=== PATIENT | male | born 1960 | race Two or more races ===

== ENCOUNTER 2019-07-13 18:35 | Inpatient (IN) | payer OTHER, MEDICAID ==
[~2019-07-13] VITALS: Ht 167.6 cm; Wt 61.7 kg
--- NOTE | 2019-07-13 19:00 | NUR ---
PATIENT IN ROOM RESTING ON GURNY A/OX3. PATIENT HAS BKA ON LLE WITH DRESSING CLEAN AND INTAKE. HAS REDNESS AND SWELLING ON RIGHT CALF AREA. DENIES PAIN AND SOB.
[2019-07-13] MEDS ORDERED: IV NORMAL SALINE 1000 ML BAG IV ONE (19:45)
[2019-07-13 20:07] LABS: *BILIRUBIN,URIN NEGATIVE (NEGATIVE); *BLOOD, URINE 3+ (NEGATIVE); *COLOR,URINE DARK YELLOW (YELLOW); *KETONES,URINE NEGATIVE (NEGATIVE); *UROBILINOGEN,URINE 0.2 E.U./dl (NORMAL); LEUKOCYTE ESTERASE ,URINE NEGATIVE (NEGATIVE); NITRITE, URINE NEGATIVE (NEGATIVE); PH,URINE 6.5 (5.0-8.0); UGLUCOSE NEGATIVE (NEGATIVE)
[2019-07-13 20:11] LABS: BASOPHILS # (AUTO) 0.1 K/uL (0.0-8.0); BASOPHILS % (AUTO) 0.5 % (0.0-2.0); EOSINOPHILS # (AUTO) 0.2 K/uL (0.0-0.7); EOSINOPHILS % (AUTO) 1.6 % (0.0-7.0); HEMATOCRIT 23.7 % (36.7-47.1); HEMOGLOBIN 8.2 g/dL (12.5-16.3); LYMPHOCYTES # (AUTO) 1.1 K/uL (20.0-40.0); LYMPHOCYTES % (AUTO) 10.9 % (20.5-51.5); MEAN CORPUSCULAR HGB CONC 35 g/dL (32.5-36.3); MEAN CORPUSCULAR VOLUME 92.5 fL (73.0-96.2); MONOCYTES # (AUTO) 0.7 K/uL (2.0-10.0); MONOCYTES % (AUTO) 7.4 % (0.0-11.0); NEUTROPHILS # (AUTO) 7.6 K/uL (1.8-8.9); NEUTROPHILS % (AUTO) 79.6 % (38.5-71.5); PLATELET COUNT (AUTO) 99 K/uL (152-348); RED BLOOD CELL COUNT(AUTO) 2.56 MIL/uL (4.06-5.63); WHITE BLOOD COUNT (AUTO) 9.6 K/uL (3.6-10.2)
[2019-07-13 20:16] LABS: CREATININE 1.5 mg/dL (0.6-1.3); POTASSIUM 3.1 mmol/L (3.5-5.1)
[2019-07-13 20:18] LABS: *CLARITY,URINE SLIGHTLY HAZY (CLEAR)
[2019-07-13 20:19] LABS: MUCUS,URINE MODERATE /LPF (0-FEW); RBC,URINE 50-80 /HPF (0-3); SQUAMOUS EPITHELIAL CELL,UR FEW /HPF (NONE SEEN); WBC,URINE 0-3 /HPF (0-3)
[2019-07-13 20:22] LABS: BILIRUBIN,DIRECT 0.6 mg/dL (0.0-0.2); BILIRUBIN,TOTAL 1.2 mg/dL (0.2-1.0); TOTAL PROTEIN, SERUM 6.5 g/dL (6.4-8.2)
[2019-07-13] MEDS ORDERED: PIPERACILLIN SODIUM/TAZOBACTAM 3.375 G in IV DEXTROSE 5% 50 ML IV ONE (20:30)
[2019-07-13] MEDS ORDERED: VANCOMYCIN IV 1,000 MG in IV DEXTROSE 5% 250 ML IV ONE (20:30)
[2019-07-13 20:45] LABS: BAND % (MANUAL) 6 % (0-10); EOSINOPHILS % (MANUAL) 1 % (0-8); LYMPHOCYTES % (MANUAL) 11 % (20-40); MONOCYTES % (MANUAL) 5 % (2-10); NEUTROPHILS % (MANUAL) 77 % (42-75)
[2019-07-13] MEDS ORDERED: VANCOMYCIN IV 200 ML ONE (20:55)
[2019-07-13] MEDS ORDERED: PIPERACILLIN/TAZOBACTAM/D5W 50 ML IV ONE (20:55)
--- NOTE | 2019-07-13 20:57 | NUR ---
MELINA (FROM [facility]) CALLED BACK GAVE VERBAL AUTHORIZATION TO ADMIT PT HERE @ [facility].
[2019-07-13] MEDS ORDERED: FENO48TA PO (21:12)
[2019-07-13] MEDS ORDERED: ATOR10TA PO (21:12)
[2019-07-13] MEDS ORDERED: FURO40TA5 PO (21:12)
[2019-07-13] MEDS ORDERED: DOCU100C36 PO (21:12)
[2019-07-13] MEDS ORDERED: GABA-532 PO (21:12)
[2019-07-13] MEDS ORDERED: LUBI24CA5 PO (21:12)
[2019-07-13] MEDS ORDERED: GLUC1KIT IJ (21:12)
[2019-07-13] MEDS ORDERED: HYDR-4209 PO (21:12)
[2019-07-13] MEDS ORDERED: PANT40TA4 PO (21:12)
[2019-07-13] MEDS ORDERED: COLL30OI TOP (21:12)
[2019-07-13] MEDS ORDERED: BLOO-360 IN (21:12)
[2019-07-13] MEDS ORDERED: POLY17PO4 PO (21:12)
[2019-07-13] MEDS ORDERED: ACET325T53 PO (21:12)
[2019-07-13] MEDS ORDERED: POTA-88 PO (21:12)
[2019-07-13] MEDS ORDERED: LOPE-195 PO (21:12)
[2019-07-13] MEDS ORDERED: MIDO5TAB5 PO (21:12)
[2019-07-13] MEDS ORDERED: FOLI0.4T2 PO (21:12)
[2019-07-13] MEDS ORDERED: SUCR1TAB PO (21:12)
[2019-07-13] MEDS ORDERED: HYDROCODONE/APAP 5-325MG TABLET PO PRN ×2 (21:15)
[2019-07-13] MEDS ORDERED: MAGNESIUM HYDROXIDE 30 ML LIQUID UDC PO PRN (21:15)
[2019-07-13] MEDS ORDERED: IV NS 1000 ML 1,000 ML IV SCH (21:15)
[2019-07-13] MEDS ORDERED: ACETAMINOPHEN 325 MG TABLET PO PRN (21:15)
[2019-07-13] MEDS ORDERED: Z GUARD REMEDY PASTE 57 GM TUBE TOP PRN (21:15)
[2019-07-13] MEDS ORDERED: ONDANSETRON 4 MG/2 ML VIAL IV PRN (21:15)
--- NOTE | 2019-07-13 21:32 | NUR ---
TRANSEFERED TO 3RD FLOOR VIA MARY
[2019-07-13 22:00] VITALS: BP 93/52
--- NOTE | 2019-07-13 22:00 | NUR ---
Received patient from ER. Dx: Cellulitis. Patient is A/Ox2-3, forgetful. Complains of pain to the right lower extremity, redness/swelling noted. Patient had recent left BKA, stitches are still intact, slight bleeding noted, put new dressing. Patient also noted with sacral decub, changed dressing, wound consult ordered. Vanco running on the right forearm. Sister came to visit, also gave some PMH. Patient oriented to unit and room. Safety measures initiated. Bed is low and locked, call light within reach. Will continue to monitor.
[2019-07-13] MEDS: SUCRALFATE 1 G TABLET PO SCH (22:37)
[2019-07-13] MEDS: POTASSIUM CHLORIDE 50 ML IV SCH ×2 (22:45→23:41)
[2019-07-13] MEDS: IV NS 1000 ML 1,000 ML IV PRN (22:47)
[2019-07-13] MEDS ORDERED: PIPERACILLIN SODIUM/TAZO 3.375 GM VIAL ONE (23:14)
[2019-07-13] MEDS: PIPERACILLIN SODIUM/TAZOBACTAM 3.375 G in IV DEXTROSE 5% 50 ML IV SCH (23:41)
[2019-07-14] VITALS: BP 94/43
[2019-07-14] MEDS ORDERED: DEXTROSE 50% 50 ML DISP.SYRIN IV PRN (00:45)
[2019-07-14] MEDS: POTASSIUM CHLORIDE 50 ML IV SCH ×2 (00:51→01:54)
[2019-07-14 04:49] VITALS: BP 92/53
[2019-07-14] MEDS: PIPERACILLIN SODIUM/TAZOBACTAM 3.375 G in IV DEXTROSE 5% 50 ML IV SCH (06:11)
[2019-07-14] MEDS: PANTOPRAZOLE SODIUM 40 MG TABLET.DR PO SCH ×2 (06:12→16:17)
[2019-07-14] MEDS: SUCRALFATE 1 G TABLET PO SCH ×4 (06:37→20:04)
[2019-07-14] MEDS: BLOOD SUGAR DIAGNOSTIC 1 EACH STRIP VI SCH ×4 (06:37→20:05)
--- NOTE | 2019-07-14 06:47 | NUR ---
Patient slept well, 4 bags of potassium infused and tolerated well. Antibiotics given as ordered. IVF running on the right forearm, no s/s of infection or infiltration. [place] given for pain x1. SBP in the 90s. Sinus tachy up to 110 on the monitor, no fevers noted. Safety measures given. Will endorse to next shift.
[2019-07-14 07:07] LABS: CREATININE 1.4 mg/dL (0.6-1.3); PHOSPHOROUS 2.8 mg/dL (2.5-4.9); POTASSIUM 3.5 mmol/L (3.5-5.1)
[2019-07-14 07:08] LABS: BASOPHILS # (AUTO) 0.1 K/uL (0.0-8.0); BASOPHILS % (AUTO) 0.5 % (0.0-2.0); EOSINOPHILS # (AUTO) 0.2 K/uL (0.0-0.7); EOSINOPHILS % (AUTO) 1.9 % (0.0-7.0); HEMOGLOBIN 8.3 g/dL (12.5-16.3); LYMPHOCYTES % (AUTO) 9.6 % (20.5-51.5); MEAN CORPUSCULAR HEMOGLOBIN 32.3 uug (23.8-33.4); MEAN CORPUSCULAR HGB CONC 35 g/dL (32.5-36.3); MEAN CORPUSCULAR VOLUME 93.3 fL (73.0-96.2); MONOCYTES # (AUTO) 0.6 K/uL (2.0-10.0); MONOCYTES % (AUTO) 5.7 % (0.0-11.0); NEUTROPHILS # (AUTO) 8.5 K/uL (1.8-8.9); NEUTROPHILS % (AUTO) 82.3 % (38.5-71.5); PLATELET COUNT (AUTO) 106 K/uL (152-348); RED BLOOD CELL COUNT(AUTO) 2.57 MIL/uL (4.06-5.63); WHITE BLOOD COUNT (AUTO) 10.3 K/uL (3.6-10.2)
[2019-07-14] MEDS ORDERED: BLOOD SUGAR DIAGNOSTIC 1 EACH STRIP VI SCH (07:30)
[2019-07-14 07:37] LABS: MAGNESIUM 0.9 mg/dL (1.8-2.4)
[2019-07-14] MEDS: IV NS 1000 ML 1,000 ML IV PRN ×2 (07:58→18:53)
[2019-07-14] MEDS: MIRALAX 17 GM POWD.PACK PO SCH ×2 (08:19→16:18)
[2019-07-14] MEDS: GABAPENTIN 100 MG CAPSULE PO SCH ×3 (08:19→16:18)
[2019-07-14] MEDS: DOCUSATE SODIUM 100 MG CAPSULE PO SCH ×2 (08:19→16:18)
[2019-07-14] MEDS: MIDODRINE HCL 5 MG TABLET PO SCH ×3 (08:20→16:18)
[2019-07-14] MEDS: FOLIC ACID 1 MG TABLET PO SCH (08:20)
--- NOTE | 2019-07-14 08:48 | NUR ---
Clinical pharmacy note-Vancomycin dosing per pharmacy Subjective: To start Vancomycin dosing on this patient for LE cellulitis(also on Zosyn) Objective: BUN/Scr 9/1.4 WBC 10.3 Temp 98.3 Ht 167.64cm Wt 61.717kg Assessment/Plan: Patient had Vancomycin 1gram IV last night at 2120 in ER. Since renal function is improving(yesterday scr was 1.5), will continue Vancomycin 1gram IV every 21 hrs(second dose tonight at 1800) and draw trough by 4th dose(not ordered yet) for expected trough around 15. Will monitor renal function to adjust the dose if needed. Will follow daily.
[2019-07-14] MEDS ORDERED: INFLUENZA VACCINE 2019-2020 0.5 ML DISP.SYRIN IM ONE (09:00)
[2019-07-14] MEDS ORDERED: Medication Not On Formulary EA (Lubiprostone (Amitiza) 24 MCG) PO SCH (09:00)
[2019-07-14] MEDS: MAGNESIUM SULFATE/D5W 100 ML IV SCH ×4 (09:39→11:27)
[2019-07-14] MEDS: FENOFIBRATE NANOCRYSTALLIZED 48 MG TABLET PO SCH (09:45)
[2019-07-14] MEDS: INSULIN REGULAR, HUMAN 300 UNIT/3 ML VIAL SQ PRN ×2 (11:17→20:11)
[2019-07-14 11:42] VITALS: BP 89/42
[2019-07-14] MEDS ORDERED: PIPERACILLIN SODIUM/TAZOBACTAM 3.375 G in IV DEXTROSE 5% 50 ML IV SCH (12:00)
--- NOTE | 2019-07-14 13:05 | NUR ---
WOUND CARE CONSULT: PT PRESENTS WITH SACRAL STAGE 3 ULCER AND LEFT BELOW KNEE AMPUTATION INCISION ( SUTURED), WELL DISCOLORATION TO RT LOWER LEG WITH REDNESS, PRESENT ON ADMISSION. RECOMMEND SURGICAL CONSULT AND DPM CONSULT. DR GARZA NOTIFIED OF SURGICAL CONSULT REQUEST AND DR VOSS NOTIFIED OF DPM CONSULT REQUEST. RECOMMENDATIONS MADE FOR SKIN PROTECTION AND DISCUSSED WITH NURSING STAFF. WILL SEE PRN. FROST IN AGREEMENT WITH PLAN OF CARE. Addendum: 07/14/19 at 1307 by ELOISA GARCIAS RN Amended: Links added.
[2019-07-14] MEDS: PIPERACILLIN/TAZOBACTAM/D5W 3.375 G in IV DEXTROSE 5% 50 ML IV SCH ×2 (13:25→21:18)
[2019-07-14 15:32] VITALS: BP 103/51
[2019-07-14] MEDS ORDERED: GLUCAGON,HUMAN RECOMBINANT 1 MG VIAL IVP PRN (16:30)
[2019-07-14] MEDS: VANCOMYCIN IV 1,000 MG in IV DEXTROSE 5% 250 ML IV SCH (17:14)
[2019-07-14] MEDS: ATORVASTATIN 10 MG TABLET PO SCH (20:05)
[2019-07-14] MEDS: THERAHONEY GEL 1.5 OZ TUBE TOP SCH (20:05)
[2019-07-14 21:34] VITALS: BP 107/58
[2019-07-15 01:10] VITALS: BP 101/55
[2019-07-15] MEDS: IV NS 1000 ML 1,000 ML IV PRN ×2 (03:23→15:42)
--- NOTE | 2019-07-15 05:30 | NUR ---
patient received in bed with family at bedside. no s/s of acute distress and v/s stable at this throughout shift. safety and comfort measures provided. bed in lowest position, side rails up x2, bed in lowest position. refused blood draw this morning.
[2019-07-15] MEDS: PIPERACILLIN/TAZOBACTAM/D5W 3.375 G in IV DEXTROSE 5% 50 ML IV SCH ×5 (05:35→23:38)
--- NOTE | 2019-07-15 05:49 | NUR ---
patient refusing to have vitals taken when asked twice this morning. will f/u later.
--- NOTE | 2019-07-15 05:50 | NUR ---
wound care provided on Left BKA.
[2019-07-15] MEDS: PANTOPRAZOLE SODIUM 40 MG TABLET.DR PO SCH ×3 (06:05→16:14)
--- NOTE | 2019-07-15 06:08 | NUR ---
patient refusing to have BS taken and also morning meds. returned to suzie. Addendum: 07/15/19 at 0652 by TONG CARVER RN patient allowed BS only. despite education patient refused to take all his morning medications and not to bother him for the rest of the day.
[2019-07-15] MEDS: SUCRALFATE 1 G TABLET PO SCH ×4 (06:31→20:31)
[2019-07-15] MEDS: BLOOD SUGAR DIAGNOSTIC 1 EACH STRIP VI SCH ×4 (06:32→20:49)
--- NOTE | 2019-07-15 08:04 | NUR ---
ALERT TURNED AND REPOSITIONED ON FIRST STEP SUMIT PATIENT HAS REFUSED BLOOD TEST THIS AM LAB CALLED AND NOTIFIED THEM THAT PATIENT NEEDS HIS LADS CHECKED DR MARVIN HERE SEEN PATIENT AWAITING FOR LAB TO COME AND DRAW HIS BLOOD.
[2019-07-15] MEDS: FENOFIBRATE NANOCRYSTALLIZED 48 MG TABLET PO SCH (08:24)
[2019-07-15] MEDS: INSULIN REGULAR, HUMAN 300 UNIT/3 ML VIAL SQ PRN ×3 (08:24→20:50)
[2019-07-15] MEDS: FOLIC ACID 1 MG TABLET PO SCH (08:25)
[2019-07-15] MEDS: DOCUSATE SODIUM 100 MG CAPSULE PO SCH ×2 (08:25→16:47)
[2019-07-15] MEDS: MIRALAX 17 GM POWD.PACK PO SCH ×2 (08:27→16:47)
[2019-07-15] MEDS: GABAPENTIN 100 MG CAPSULE PO SCH ×3 (08:27→16:14)
[2019-07-15] MEDS: MIDODRINE HCL 5 MG TABLET PO SCH ×3 (08:27→16:14)
[2019-07-15] MEDS: THERAHONEY GEL 1.5 OZ TUBE TOP SCH ×2 (08:27→20:32)
[2019-07-15 08:56] LABS: BASOPHILS % (AUTO) 0.6 % (0.0-2.0); EOSINOPHILS # (AUTO) 0.2 K/uL (0.0-0.7); EOSINOPHILS % (AUTO) 2.3 % (0.0-7.0); HEMATOCRIT 22.6 % (36.7-47.1); MEAN CORPUSCULAR HEMOGLOBIN 32.2 uug (23.8-33.4); MEAN CORPUSCULAR HGB CONC 35 g/dL (32.5-36.3); MEAN CORPUSCULAR VOLUME 93.3 fL (73.0-96.2); MONOCYTES # (AUTO) 0.8 K/uL (2.0-10.0); MONOCYTES % (AUTO) 10.6 % (0.0-11.0); NEUTROPHILS # (AUTO) 5.7 K/uL (1.8-8.9); NEUTROPHILS % (AUTO) 73.5 % (38.5-71.5); PLATELET COUNT (AUTO) 89 K/uL (152-348); WHITE BLOOD COUNT (AUTO) 7.7 K/uL (3.6-10.2)
[2019-07-15 09:08] LABS: CREATININE 1.3 mg/dL (0.6-1.3)
[2019-07-15 09:22] LABS: HEMOGLOBIN 7.8 g/dL (12.5-16.3); RED BLOOD CELL COUNT(AUTO) 2.42 MIL/uL (4.06-5.63)
--- NOTE | 2019-07-15 09:41 | NUR ---
Clinical pharmacy note-Vancomycin dosing per pharmacy Subjective: To continue Vancomycin dosing on this patient for LE cellulitis Objective: BUN/Scr /.3 WBC 7.7 Temp 98.5 Ht 167.64cm Wt 61.717kg Assessment/Plan: Will continue same dose of Vancomycin 1gram IV every 21 hrs for today. 3rd dose today at 1500) and draw trough by 4th dose(ordered for 07/16 at 1130) for expected trough around 15. Will review the level when available & adjust the dose if needed. Will monitor renal function to adjust the dose if needed. Will follow daily.
[2019-07-15 11:30] VITALS: BP 108/48
--- NOTE | 2019-07-15 12:22 | NUR ---
TEXTED DR. VIRAMONTES FOR MRI APPROVAL.
[2019-07-15 12:53] LABS: BAND % (MANUAL) 2 % (0-10); EOSINOPHILS % (MANUAL) 2 % (0-8); LYMPHOCYTES % (MANUAL) 9 % (20-40); MONOCYTES % (MANUAL) 16 % (2-10); NEUTROPHILS % (MANUAL) 71 % (42-75)
--- NOTE | 2019-07-15 13:26 | NUR ---
PATIENT WAS SEEN AND EXAMINED BY SAMUEL NAIDU DPM WITH ORDERS FOR XRAYS OF RIGHT KNEE AND TIBIA NA D MRI OF THE LE KNEE JOINT PATIENT AWARE AND SIGNED CONSCENT WILL BE PICKED UP AT ABOUT 5-530 TODAY FOR THE MRI ORDERED.
[2019-07-15] MEDS ORDERED: GADOTERIDOL 279.3 MG/ML, 10 ML VIAL IV ONE (13:59)
--- NOTE | 2019-07-15 14:22 | NUR ---
CALLED AND SPOKE WITH DR MARVIN POTASSIUM LEVEL IS 3.0 AND MAG IS 1.7 WITH NEW ORDERS AND NOTED.
[2019-07-15] MEDS ORDERED: MAGNESIUM SULFATE 1 GM in IV DEXTROSE 5% 100 ML IV ONE ×2 (14:30→15:30)
[2019-07-15] MEDS ORDERED: POTASSIUM CHLORIDE 10 MEQ TAB.PRT.SR PO ONE ×2 (14:30→18:30)
[2019-07-15] MEDS: MAGNESIUM SULFATE/D5W 100 ML IV SCH ×2 (14:42→17:56)
[2019-07-15 15:19] VITALS: BP 102/51
[2019-07-15] MEDS: VANCOMYCIN IV 1,000 MG in IV DEXTROSE 5% 250 ML IV SCH (15:39)
--- NOTE | 2019-07-15 18:00 | NUR ---
THE THE PROJECT CONTROLS SPECIALIST THE AMBULANCE IS NOT ABLE TO CLIENT PROGRAM MANAGER PATIENT UNTIL 2029 THE MRI AWARE AND WILL ACCOMRDATE PATIENT AT THISW TIME. Addendum: 07/15/19 at 1837 by GUY SALOMON RN PER THE JONATHAN KHAN
[2019-07-15] MEDS: ATORVASTATIN 10 MG TABLET PO SCH (20:31)
[2019-07-15 20:59] VITALS: BP 106/64
--- NOTE | 2019-07-15 21:00 | NUR ---
patient insulin sliding scale not covered tonight. received report that patient did not have any dinner to eat and patient leaving for MRI.
--- NOTE | 2019-07-15 21:00 | NUR ---
ambulance came and picked up patient to take to [facility] for MRI. v/s stable.
--- NOTE | 2019-07-15 23:00 | NUR ---
patient arrived from [facility] from [facility]. v/s stable and no acute distress. will continue to monitor.
--- NOTE | 2019-07-16 | NUR ---
received call from [facility] twice today. Spoke with Silvia first time and Lucila second time. Silvia informed me patient was to be transferred to [facility] and Dr. Jenkins approved with [facility] insurance doctor. This is incorrect information. contacted Dr. mcgill regarding this matter and he spoke with Dr. Jenkins. It was discussed with [facility] doctor and Dr. jenkins regarding patient that patient will not be discharged today. patient discharge will possibly be determined tomorrow with MRI results. Lucila made aware. [facility] will follow up later today.
[2019-07-16] MEDS: LOPERAMIDE HCL 2 MG CAPSULE PO PRN ×2 (00:01→10:52)
[2019-07-16] MEDS: IV NS 1000 ML 1,000 ML IV PRN (04:57)
[2019-07-16] MEDS: PIPERACILLIN/TAZOBACTAM/D5W 3.375 G in IV DEXTROSE 5% 50 ML IV SCH ×2 (05:00→11:08)
--- NOTE | 2019-07-16 06:03 | NUR ---
wound care provided on sacrum and left BKA stump. safety and comfort measures provided. v/s stable. no s/s of acute distress.
[2019-07-16 06:29] VITALS: BP 110/62
[2019-07-16] MEDS: PANTOPRAZOLE SODIUM 40 MG TABLET.DR PO SCH (06:39)
[2019-07-16] MEDS: SUCRALFATE 1 G TABLET PO SCH ×2 (06:39→10:52)
[2019-07-16 06:49] LABS: BASOPHILS % (AUTO) 0.6 % (0.0-2.0); EOSINOPHILS # (AUTO) 0.2 K/uL (0.0-0.7); HEMATOCRIT 22.2 % (36.7-47.1); HEMOGLOBIN 7.7 g/dL (12.5-16.3); LYMPHOCYTES % (AUTO) 17.6 % (20.5-51.5); MEAN CORPUSCULAR HEMOGLOBIN 32.3 uug (23.8-33.4); MEAN CORPUSCULAR HGB CONC 35 g/dL (32.5-36.3); MEAN CORPUSCULAR VOLUME 93.5 fL (73.0-96.2); MONOCYTES # (AUTO) 0.6 K/uL (2.0-10.0); MONOCYTES % (AUTO) 10.6 % (0.0-11.0); NEUTROPHILS # (AUTO) 3.9 K/uL (1.8-8.9); NEUTROPHILS % (AUTO) 68.2 % (38.5-71.5); PLATELET COUNT (AUTO) 82 K/uL (152-348); WHITE BLOOD COUNT (AUTO) 5.7 K/uL (3.6-10.2)
[2019-07-16 06:57] LABS: RED BLOOD CELL COUNT(AUTO) 2.37 MIL/uL (4.06-5.63)
[2019-07-16 07:12] LABS: CREATININE 1.2 mg/dL (0.6-1.3); POTASSIUM 3.5 mmol/L (3.5-5.1)
[2019-07-16] MEDS ORDERED: PIPE3.379 IV (07:30)
[2019-07-16] MEDS ORDERED: RXVAN XX (07:30)
--- NOTE | 2019-07-16 07:40 | NUR ---
PATIENT SEEN AND EXAMINED BY DR MARVIN WITH ORDER TO TRANSFER PATIENT TO ANOTHER ACUTE HOSPITAL FOR CONTINUING CARE AWAITING FOR INFO RE ACCEPTING DOCTOR AND WHICH HOSPITAL.
[2019-07-16] MEDS: BLOOD SUGAR DIAGNOSTIC 1 EACH STRIP VI SCH ×2 (07:54→11:14)
[2019-07-16] MEDS: INSULIN REGULAR, HUMAN 300 UNIT/3 ML VIAL SQ PRN (07:57)
[2019-07-16] MEDS: GABAPENTIN 100 MG CAPSULE PO SCH ×2 (08:16→12:23)
[2019-07-16] MEDS: FOLIC ACID 1 MG TABLET PO SCH (08:16)
[2019-07-16 08:17] LABS: EOSINOPHILS % (MANUAL) 1 % (0-8); LYMPHOCYTES % (MANUAL) 14 % (20-40); MONOCYTES % (MANUAL) 3 % (2-10); NEUTROPHILS % (MANUAL) 82 % (42-75)
[2019-07-16] MEDS: FENOFIBRATE NANOCRYSTALLIZED 48 MG TABLET PO SCH (08:17)
[2019-07-16] MEDS: MIDODRINE HCL 5 MG TABLET PO SCH ×2 (08:17→12:23)
[2019-07-16] MEDS: THERAHONEY GEL 1.5 OZ TUBE TOP SCH (08:19)
[2019-07-16] MEDS: DOCUSATE SODIUM 100 MG CAPSULE PO SCH (08:20)
[2019-07-16] MEDS: MIRALAX 17 GM POWD.PACK PO SCH (08:20)
[2019-07-16 11:53] VITALS: BP 113/48
--- NOTE | 2019-07-16 12:19 | NUR ---
Clinical pharmacy note-Vancomycin dosing per pharmacy Subjective: To continue Vancomycin dosing on this patient for LE cellulitis Objective: BUN/Scr /.2 WBC 5.7 Temp 97.9 Vanco trough level on 07/16 at 1130: 16.4 Ht 167.64cm Wt 61.717kg Assessment/Plan: Since vanco trough level is within therapeutic range, will continue same dose of Vancomycin 1gram IV every 21 hrs for today. Will monitor renal function to adjust the dose if needed. Will follow daily.
[2019-07-16 12:23] VITALS: BP 114/48
[2019-07-16] MEDS: VANCOMYCIN IV 1,000 MG in IV DEXTROSE 5% 250 ML IV SCH (12:23)
--- NOTE | 2019-07-16 12:51 | NUR ---
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
--- NOTE | 2019-07-16 13:32 | NUR ---
APPARENTLY [facility] IS AVAILABLE TO TAKE REPORT CALLED AND REPORT GIVEN TO ROBERTO KHAN FOR CONTINUING CARE AWAITING FOR AMBULANCE HOUSE PAINTER.
--- NOTE | 2019-07-16 14:00 | NUR ---
PATIENT DISCHARGED PICKED UP BY [facility] IN STABLE CONDITION WITH DISCHARGE INSTRUCTIONS PATIENT WILL CONTINUE ON VANCOMICIN AND ZOSYN ORDERED HE HAS 2 HEP LOCKS INTACT TO CONTINUE HIS IV INFUSSION.
== END 2019-07-16 14:00 | disposition short-term general hospital (02) | DRG 383 ==
LOC: ER 18:38 → TELE3 21:19 → MEDSURG3 07-15 09:40
PROVIDERS: ADMIT Family Medicine; ATTEND Family Medicine
PROC: 0JB70ZZ Excision of Back Subcutaneous Tissue and Fascia, Open Approach (ICD-10-PCS; principal; 2019-07-14)
DX: L03.115 Cellulitis of right lower limb (principal); N17.0 Acute kidney failure with tubular necrosis; E43 Unspecified severe protein-calorie malnutrition; G93.40 Encephalopathy, unspecified; L89.153 Pressure ulcer of sacral region, stage 3; M00.9 Pyogenic arthritis, unspecified; E11.42 Type 2 diabetes mellitus with diabetic polyneuropathy; I95.9 Hypotension, unspecified; E11.51 Type 2 diabetes mellitus with diabetic peripheral angiopathy without gangrene; E83.42 Hypomagnesemia; K76.1 Chronic passive congestion of liver; E86.9 Volume depletion, unspecified; E87.1 Hypo-osmolality and hyponatremia; E78.5 Hyperlipidemia, unspecified; E87.6 Hypokalemia; Z87.39 Personal history of other diseases of the musculoskeletal system and connective tissue; E83.51 Hypocalcemia; K29.70 Gastritis, unspecified, without bleeding; Z79.899 Other long term (current) drug therapy; D63.8 Anemia in other chronic diseases classified elsewhere; F10.20 Alcohol dependence, uncomplicated; Y90.9 Presence of alcohol in blood, level not specified; I10 Essential (primary) hypertension; Z89.512 Acquired absence of left leg below knee; L02.415 Cutaneous abscess of right lower limb; Z87.2 Personal history of diseases of the skin and subcutaneous tissue
CPT/HCPCS: 36415; 70030-TC; 71045; 73590; 73723; 83605; 83690; 83735; 84100; 85025; 85730; 87040; 87086; 87400; 93005; A4663; A9579; G0378; J1815; J2543; J3370; J3475; J3480; J3490; J7030; J7060

== ENCOUNTER 2019-10-11 20:01 | Inpatient (IN) | payer MEDICAID, OTHER ==
[~2019-10-11] VITALS: Ht 170.2 cm; Wt 74.8 kg
--- NOTE | 2019-10-11 20:08 | NUR ---
Dr. Covarrubias at bedside for MSE.
[2019-10-11] MEDS ORDERED: IV NORMAL SALINE 1000 ML BAG IV ONE (20:15)
[2019-10-11 20:58] LABS: BASOPHILS # (AUTO) 0.1 K/uL (0.0-8.0); BASOPHILS % (AUTO) 0.9 % (0.0-2.0); EOSINOPHILS # (AUTO) 0.3 K/uL (0.0-0.7); EOSINOPHILS % (AUTO) 4.5 % (0.0-7.0); HEMATOCRIT 27.6 % (36.7-47.1); HEMOGLOBIN 9.5 g/dL (12.5-16.3); LYMPHOCYTES # (AUTO) 3.7 K/uL (20.0-40.0); LYMPHOCYTES % (AUTO) 47.4 % (20.5-51.5); MEAN CORPUSCULAR HGB CONC 34 g/dL (32.5-36.3); MEAN CORPUSCULAR VOLUME 90.2 fL (73.0-96.2); MONOCYTES # (AUTO) 0.5 K/uL (2.0-10.0); MONOCYTES % (AUTO) 6.1 % (0.0-11.0); NEUTROPHILS # (AUTO) 3.2 K/uL (1.8-8.9); NEUTROPHILS % (AUTO) 41.1 % (38.5-71.5); PLATELET COUNT (AUTO) 359 K/uL (152-348); RED BLOOD CELL COUNT(AUTO) 3.06 MIL/uL (4.06-5.63); WHITE BLOOD COUNT (AUTO) 7.8 K/uL (3.6-10.2)
[2019-10-11 21:17] LABS: ETHANOL < 3 MG/DL (0-0)
[2019-10-11 21:20] LABS: CREATININE 1.3 mg/dL (0.6-1.3); POTASSIUM 4.3 mmol/L (3.5-5.1)
[2019-10-11 21:23] LABS: CREATINE KINASE, TOTAL 41 U/L (39-308); LIPASE 670 U/L (73-393); MAGNESIUM 1.6 mg/dL (1.8-2.4); PHOSPHOROUS 4.7 mg/dL (2.5-4.9)
[2019-10-11] MEDS ORDERED: LIDOCAINE 2%-EPI 1:100,000 20 ML VIAL TP ONE (21:30)
[2019-10-11 21:31] LABS: BILIRUBIN,DIRECT 0.1 mg/dL (0.0-0.2); BILIRUBIN,TOTAL 0.2 mg/dL (0.2-1.0); TOTAL PROTEIN, SERUM 9.4 g/dL (6.4-8.2)
[2019-10-11 21:32] LABS: THYROID STIMULATING HORMONE 3.098 mIU/mL (0.358-3.740)
[2019-10-11] MEDS ORDERED: LIDOCAINE 2%-EPI 1:100,000 20 ML VIAL ONE (21:48)
--- NOTE | 2019-10-11 21:56 | NUR ---
Pt provided urine sample, sent to lab.
[2019-10-11 22:00] LABS: *BILIRUBIN,URIN NEGATIVE (NEGATIVE); *BLOOD, URINE 1+ (NEGATIVE); *CLARITY,URINE CLOUDY (CLEAR); *COLOR,URINE YELLOW (YELLOW); *KETONES,URINE NEGATIVE (NEGATIVE); *UROBILINOGEN,URINE 0.2 E.U./dl (NORMAL); LEUKOCYTE ESTERASE ,URINE 2+ (NEGATIVE); NITRITE, URINE NEGATIVE (NEGATIVE); UGLUCOSE NEGATIVE (NEGATIVE)
[2019-10-11 22:08] LABS: BACTERIA,URINE MANY /HPF (NONE SEEN); WBC,URINE 80-100 /HPF (0-3)
[2019-10-11 22:13] LABS: *AMPHETAMINE, URINE NEGATIVE (NEGATIVE); *BARBITURATE, URINE NEGATIVE (NEGATIVE); *CANNABINOID, URINE NEGATIVE (NEGATIVE); *COCCAINE, URINE NEGATIVE (NEGATIVE); *OPIATE, URINE NEGATIVE (NEGATIVE); *PHENCYCLIDINE SCREEN,URINE NEGATIVE (NEGATIVE)
[2019-10-11] MEDS ORDERED: MAGNESIUM SULFATE/D5W 100 ML IV SCH (22:15)
[2019-10-11] MEDS ORDERED: PIPERACILLIN SODIUM/TAZOBACTAM 3.375 G in IV DEXTROSE 5% 50 ML IV ONE (22:15)
[2019-10-11] MEDS ORDERED: VANCOMYCIN IV 1,250 MG in IV DEXTROSE 5% 250 ML IV ONE (22:15)
[2019-10-11] MEDS ORDERED: PIPERACILLIN/TAZOBACTAM/D5W 50 ML IV ONE (22:24)
[2019-10-11] MEDS ORDERED: MAGNESIUM SULFATE/D5W 100 ML ONE (23:07)
[2019-10-11] MEDS ORDERED: VANCOMYCIN IV 200 ML ONE (23:48)
[2019-10-11] MEDS ORDERED: VANCOMYCIN HCL 500 MG VIAL ONE (23:48)
[2019-10-12] MEDS ORDERED: IV NORMAL SALINE 1000 ML BAG IV ONE (00:30)
[2019-10-12] MEDS ORDERED: ACETAMINOPHEN ES 500 MG TABLET PO ONE (00:30)
[2019-10-12] MEDS ORDERED: ENOXAPARIN SODIUM 80 MG/0.8 ML DISP.SYRIN SQ ONE ×2 (00:45→01:12)
[2019-10-12] MEDS ORDERED: ACETAMINOPHEN ES 500 MG TABLET ONE ×2 (00:50→00:59)
--- NOTE | 2019-10-12 01:01 | NUR ---
Spoke with Reanna of [facility], gave clinical info, pt to be transferred to [facility], awaiting call from Dr. Nair.
--- NOTE | 2019-10-12 01:05 | NUR ---
Dr. Covarrubias speaking with Dr. Nair. Dr. Nair accepted the patient for admission to [facility].
--- NOTE | 2019-10-12 03:17 | NUR ---
Called Oscar for transfer information, states still no beds available at [facility], Pt ok to admit in [facility].
--- NOTE | 2019-10-12 03:28 | NUR ---
called for Tele bed. Spoke to JAIME Contreras
[2019-10-12] MEDS ORDERED: MAGNESIUM HYDROXIDE 30 ML LIQUID UDC PO PRN (03:30)
[2019-10-12] MEDS ORDERED: Z GUARD REMEDY PASTE 57 GM TUBE TOP PRN (03:30)
[2019-10-12] MEDS ORDERED: ACETAMINOPHEN 650 MG SUPP.RECT RC PRN (03:30)
[2019-10-12] MEDS ORDERED: ACETAMINOPHEN 325 MG TABLET PO PRN (03:30)
[2019-10-12] MEDS ORDERED: ONDANSETRON 4 MG/2 ML VIAL IV PRN (03:30)
[2019-10-12] MEDS ORDERED: HYDROCODONE/APAP 5-325MG TABLET PO PRN ×2 (03:30)
--- NOTE | 2019-10-12 03:32 | NUR ---
Dr. Covarrubias on panel call with Nathalie Awad INVESTMENT DIRECTOR. Patient accepted for admission to [facility], diagnosis: possible covid+, fever, septic arthritis.
[2019-10-12] MEDS ORDERED: IV NS 1000 ML 1,000 ML IV ONE (04:15)
--- NOTE | 2019-10-12 07:04 | NUR ---
hand off report given to ERIN Moon
--- NOTE | 2019-10-12 07:10 | NUR ---
Pt is resting in bed w/ both eyes closed, NAD noted at this time.
--- NOTE | 2019-10-12 07:43 | NUR ---
Spoke to Dr Shabbir gomez, Pt can be admitted to Tele.
[2019-10-12] MEDS ORDERED: MAGNESIUM SULFATE 1 GM in IV DEXTROSE 5% 50 ML IV ONE (07:45)
--- NOTE | 2019-10-12 08:45 | NUR ---
received pt. on jeremias from ER. pt. is alert oriented x3. pt. states he has pain in his Right knee 7/10 pain. Will assess pain and provide pain medication. Pt. denies SOB/ difficulty breathing/ cough. Pt. saturating 100% on room air. IV in L AC 20 gauge intact patent saline lock. safety measures in place. call light within reach. will continue to monitor pt.
[2019-10-12] MEDS ORDERED: MAGNESIUM SULFATE/D5W 100 ML IV SCH (09:00)
--- NOTE | 2019-10-12 09:51 | NUR ---
Clinical Pharmacy Note: Vancomycin Pharmacy To Dose Subjective: To start vancomycin in this 59 y/o male for suspected infection (r/o COVID) Objective: weight 75kg height 170cm BUN/SCr 24/1.3 (10/10) wbc 7.8 temp 99 Assessment/Plan Patient received vanco 1250 mg IVPB last night in ED at 2330. Will starte vanco 1250 mg IVPB q19h for predicted vanco trough level of 16 mcg/ml at steady state. 2nd dose today at 1830. Plan to draw vanco trough level (not yet ordered). Will follow and adjust per renal function if necessary.
[2019-10-12] MEDS: PIPERACILLIN SODIUM/TAZOBACTAM 3.375 G in IV DEXTROSE 5% 50 ML IV SCH ×3 (11:32→23:28)
[2019-10-12 12:00] VITALS: BP 115/66
--- NOTE | 2019-10-12 13:49 | NUR ---
MRI machine is not working per dry pan charger. Notified Dr. Shea and Dr. Romero that MRI will not be done today. Pt. will not be NPO tonight.
[2019-10-12] MEDS ORDERED: DEXTROSE 50% 50 ML DISP.SYRIN IV PRN (15:00)
[2019-10-12] MEDS ORDERED: HYDROCODONE/APAP 10-325 MG TABLET PO PRN (15:00)
[2019-10-12 16:00] VITALS: BP 103/57
[2019-10-12] MEDS: SUCRALFATE 1 G TABLET PO SCH ×2 (16:17→20:57)
[2019-10-12] MEDS ORDERED: BLOOD SUGAR DIAGNOSTIC 1 EACH STRIP VI SCH (16:30)
[2019-10-12] MEDS: BLOOD SUGAR DIAGNOSTIC 1 EACH STRIP VI SCH ×2 (16:36→21:08)
[2019-10-12] MEDS: INSULIN REGULAR, HUMAN 300 UNIT/3 ML VIAL SQ PRN (16:38)
--- NOTE | 2019-10-12 18:24 | NUR ---
Pt. doing well throughout shift. No SOB/ difficulty breathing. No cough. No fever. Pt. saturating at 100% on Room air. All needs met. safety measures in place. call light within reach. will endorse to pm nurse
[2019-10-12] MEDS: VANCOMYCIN IV 1,250 MG in IV DEXTROSE 5% 250 ML IV SCH (18:30)
--- NOTE | 2019-10-12 19:30 | NUR ---
Received patient lying in bed. AAOx4. In no acute distress. Afebrile. VS WNL. Denies any pain or SOB at this time. Right AC IV site intact and patent. NSR on tele at 99/min. Droplet and contact precaution observed. Needs assessed and attended to. Safety measure initiated and call harrison within reached.
--- NOTE | 2019-10-12 20:30 | NUR ---
NOTED RIGHT AC IV DISLODGE. STARTED NEW IV ON RIGHT FA #22G.
[2019-10-12] MEDS: DOCUSATE SODIUM 100 MG CAPSULE PO SCH (20:57)
[2019-10-12] MEDS ORDERED: PANTOPRAZOLE SODIUM 40 MG TABLET.DR PO SCH (21:00)
[2019-10-12] MEDS: MIRALAX 17 GM POWD.PACK PO SCH (21:07)
[2019-10-12] MEDS: FERROUS SULFATE 325 MG TABEC PO SCH (21:07)
[2019-10-12 21:47] VITALS: BP 123/61
--- NOTE | 2019-10-13 01:11 | NUR ---
PATIENT REFUSED TO HAVE VS TAKEN PER ORA SERRATO
[2019-10-13 04:25] VITALS: BP 101/57
[2019-10-13] MEDS: PIPERACILLIN SODIUM/TAZOBACTAM 3.375 G in IV DEXTROSE 5% 50 ML IV SCH ×3 (05:50→18:31)
--- NOTE | 2019-10-13 06:12 | NUR ---
AAOx4. In no acute distress. Afebrile. Denies any pain or SOB. Right FA IV site intact and patent. Sinus tachy on tele at 101/min. No adverse reaction noted from IV ABX. Droplet and contact precaution maintained. Needs assessed and attended to. Safety measure maintained and call harrison within reached.
[2019-10-13] MEDS: BLOOD SUGAR DIAGNOSTIC 1 EACH STRIP VI SCH ×4 (06:38→21:38)
[2019-10-13] MEDS: SUCRALFATE 1 G TABLET PO SCH ×4 (06:38→21:10)
[2019-10-13 07:42] LABS: BASOPHILS # (AUTO) 0.1 K/uL (0.0-8.0); BASOPHILS % (AUTO) 0.8 % (0.0-2.0); EOSINOPHILS # (AUTO) 0.4 K/uL (0.0-0.7); EOSINOPHILS % (AUTO) 6.7 % (0.0-7.0); HEMATOCRIT 25.6 % (36.7-47.1); HEMOGLOBIN 8.5 g/dL (12.5-16.3); LYMPHOCYTES # (AUTO) 3.3 K/uL (20.0-40.0); LYMPHOCYTES % (AUTO) 48.9 % (20.5-51.5); MEAN CORPUSCULAR HEMOGLOBIN 29.9 uug (23.8-33.4); MEAN CORPUSCULAR HGB CONC 33 g/dL (32.5-36.3); MEAN CORPUSCULAR VOLUME 90.4 fL (73.0-96.2); MONOCYTES # (AUTO) 0.5 K/uL (2.0-10.0); MONOCYTES % (AUTO) 6.9 % (0.0-11.0); NEUTROPHILS # (AUTO) 2.4 K/uL (1.8-8.9); NEUTROPHILS % (AUTO) 36.7 % (38.5-71.5); PLATELET COUNT (AUTO) 282 K/uL (152-348); RED BLOOD CELL COUNT(AUTO) 2.83 MIL/uL (4.06-5.63); WHITE BLOOD COUNT (AUTO) 6.6 K/uL (3.6-10.2)
[2019-10-13 08:30] LABS: BILIRUBIN,TOTAL 0.3 mg/dL (0.2-1.0); CREATININE 1.1 mg/dL (0.6-1.3); MAGNESIUM 1.9 mg/dL (1.8-2.4); PHOSPHOROUS 3.7 mg/dL (2.5-4.9); POTASSIUM 4.3 mmol/L (3.5-5.1); TOTAL PROTEIN, SERUM 8.1 g/dL (6.4-8.2)
[2019-10-13] MEDS ORDERED: ZINC SULFATE 220 MG CAPSULE PO SCH (09:00)
--- NOTE | 2019-10-13 09:13 | NUR ---
Clinical Pharmacy Note: Vancomycin Pharmacy To Dose Subjective: To continue vancomycin in this 59 y/o male for suspected infection (r/o COVID) Objective: weight 75kg height 170cm BUN/SCr 24/1.3 (10/10) wbc 7.8 (10/10) temp 98.4 Assessment/Plan Will continue same dose of vanco 1250 mg IVPB q19h for today. 3rd dose today at 1330. Plan to draw vanco trough level ( ordered for 10/13 at 0800).Pharmacy will review the level and adjust the dose if needed. Will follow.
--- NOTE | 2019-10-13 09:30 | NUR ---
received results from baggage clerk pt. is negative for covid test. Will give report to Reji KHAN who will take care of pt. Will move pt. out of covid unit
--- NOTE | 2019-10-13 10:15 | NUR ---
[facility] CALLED TO CONFIRM BED IS AVAILABLE AWAITING DISCHARGE ESTIMATED ARRIVAL BY [facility] AT 10:40PM. Addendum: 10/13/19 at 2314 by MAGALYS CARDOZO RN AT 2215 [facility] CALLED TO CONFIRM BED IS AVAILABLE AWAITING DISCHARGE ESTIMATED ARRIVAL BY [facility] AT 10:40PM.
[2019-10-13] MEDS: PANTOPRAZOLE SODIUM 40 MG TABLET.DR PO SCH ×2 (11:05→16:24)
[2019-10-13] MEDS: DOCUSATE SODIUM 100 MG CAPSULE PO SCH ×2 (11:06→21:09)
[2019-10-13] MEDS: MIRALAX 17 GM POWD.PACK PO SCH ×2 (11:06→21:00)
[2019-10-13] MEDS: FERROUS SULFATE 325 MG TABEC PO SCH ×2 (11:06→21:09)
--- NOTE | 2019-10-13 13:30 | NUR ---
Patient is back from [facility].
--- NOTE | 2019-10-13 13:30 | NUR ---
Patient came back from [facility], but did not have MRI d/t machine malfunction. Re-schedule for tomorrow.
--- NOTE | 2019-10-13 13:46 | NUR ---
WOUND CARE CONSULT: PT PRESENTS WITH SACRAL SCARRING AND RT KNEE SWELLING, PRESENT ON ADMISSION. LEFT BELOW KNEE AMPUTATION NOTED. RECOMMENDATIONS MADE FOR SKIN PROTECTION. DISCUSSED WITH NURSING STAFF. WILL SEE PRN. Addendum: 10/13/19 at 1347 by ELOISA GARCIAS RN Amended: Links added.
[2019-10-13] MEDS: VANCOMYCIN IV 1,250 MG in IV DEXTROSE 5% 250 ML IV SCH (13:50)
[2019-10-13 16:09] VITALS: BP 105/58
[2019-10-13] MEDS: INSULIN REGULAR, HUMAN 300 UNIT/3 ML VIAL SQ PRN ×2 (16:48→21:21)
--- NOTE | 2019-10-13 18:06 | NUR ---
Patient resting in bed, awake and alert. Patient denies any SOB or respiratory distress. Patient denies any pain. Attended to his needs. Due meds given as ordered. Vitals are stable. Safety measures in place. Bed low and locked position. Call light within reach. Will endorse to the oncoming nurse for the continuity of care.
[2019-10-13 19:59] VITALS: BP 100/52
--- NOTE | 2019-10-13 23:14 | NUR ---
PATIENT IS IN STABLE CONDITION. REPORT GIVEN TO [facility] RN NAMED FORTUNATO. AMBULANCE CAME TO TRANSFER PT, REPORT GIVEN AT 2305. VITALS STABLE, DENIES ANY PAIN, NO SOB, NO SIGNS AND SYMPTOMS OF ACUTE DISTRESS. PATIENT LEFT THE UNIT AT 2320 VIA GURNEY WITH EMT. [facility] AWARE THAT PATIENT IS ON THE WAY. ALL PAPER WORK GIVEN TO EMT.
== END 2019-10-13 23:20 | disposition short-term general hospital (02) | DRG 344 ==
LOC: ER 20:03 → TELE3 10-12 08:12 → MEDSURG3 10-13 11:20
DX: M00.9 Pyogenic arthritis, unspecified (principal); N17.0 Acute kidney failure with tubular necrosis; E11.51 Type 2 diabetes mellitus with diabetic peripheral angiopathy without gangrene; L03.115 Cellulitis of right lower limb; E87.1 Hypo-osmolality and hyponatremia; M86.8X6 Other osteomyelitis, lower leg; E11.69 Type 2 diabetes mellitus with other specified complication; D64.9 Anemia, unspecified; I10 Essential (primary) hypertension; Z87.39 Personal history of other diseases of the musculoskeletal system and connective tissue; Z89.512 Acquired absence of left leg below knee; N39.0 Urinary tract infection, site not specified; B96.20 Unspecified Escherichia coli [E. coli] as the cause of diseases classified elsewhere
CPT/HCPCS: 36415; 51702; 70030-TC; 71045; 80307; 83605; 83615; 83690; 83735; 84100; 84443; 84550; 85025; 85651; 85730; 86140; 87040; 87077; 87086; 87400; 93005; A4663; A9150; G0378; G0480; J1650; J1815; J2543; J3370; J3475; J7030; J7050; J7060